=== PATIENT | male | born 1995 | race Caucasian/White ===

== ENCOUNTER 2016-12-17 10:57 | Emergency (ER) | payer SELFPAY ==
[~2016-12-17] VITALS: Ht 180.3 cm; Wt 61.4 kg
[2016-12-17 11:08] VITALS: TEMP 97.7
[2016-12-17] MEDS ORDERED: ZOLOFT 100MG100 MG PO (11:15)
[2016-12-17 13:44] VITALS: BP 115/74; PULSE 78
== END 2016-12-17 13:57 | disposition home or self-care (01) ==
LOC: COL.ER 10:57
DX: S90.122A Contusion of left lesser toe(s) without damage to nail, initial encounter (principal); W31.89XA Contact with other specified machinery, initial encounter; Y99.0 Civilian activity done for income or pay

== ENCOUNTER 2021-02-19 08:50 | Emergency (ER) | payer SELFPAY ==
[~2021-02-19] VITALS: Ht 180.3 cm; Wt 75.0 kg
[~2021-02-19 08:50] MED LIST: ZOLOFT 100MG100 MG PO
[2021-02-19 09:18] VITALS: BP 111/67; PULSE 79; TEMP 98.3
== END 2021-02-19 09:30 | disposition home or self-care (01) ==
LOC: COL.ER 08:50
DX: S00.452A Superficial foreign body of left ear, initial encounter (principal); W45.8XXA Other foreign body or object entering through skin, initial encounter